=== PATIENT | male | born 1980 | race Caucasian/White ===

== ENCOUNTER 2023-04-26 21:06 | Emergency (ER) | payer SELFPAY ==
[~2023-04-26] VITALS: Ht 193 cm; Wt 120.5 kg
[2023-04-26 21:25] VITALS: TEMP 98
[2023-04-26 21:53] LABS: BASO # 0.1 K/mm3 (0.0-0.2); BASO % 0.6 % (0.0-2.0); EOS # 0.2 K/mm3 (0.0-0.7); EOS % 1.7 % (0.0-4.0); GRAN # 6.4 K/mm3 (1.4-6.5); GRAN % 59.3 % (42.2-75.2); HEMATOCRIT 49.1 % (42.0-52.0); HEMOGLOBIN 17.5 g/dl (13.5-18.0); LYMPH # 3.1 K/mm3 (1.2-3.4); LYMPH % 29.1 % (20.0-51.0); MEAN CELL VOLUME 85 fl (80.0-100.0); MEAN CORPUSCULAR HEMOGLOBIN 30 pg (27-31); MEAN CORPUSCULAR HGB CONC 36 g/dl (33.0-37.0); MEAN PLATELET VOLUME 9.1 fl (7.4-10.4); MONO % 9.2 % (1.7-9.3); PLATELET COUNT 227 K/mm3 (130-400); RED BLOOD COUNT 5.76 M/mm3 (4.20-5.60); REDCELL DISTRIBUTION WIDTH-CV 12.1 % (11.5-14.5)
[2023-04-26 21:59] LABS: PROTHROMBIN TIME 10.6 SECONDS (9.7-12.8)
[2023-04-26 22:13] LABS: ALANINE AMINOTRANSFERASE 18 U/L (0-55); ALBUMIN 4.4 gm/dL (3.5-5.0); ALCOHOL(ethanol),MEDICAL < 10 mg/dL (0-10); ALKALINE PHOSPHATASE 64 U/L (40-150); ANION GAP 10 mmol/L (7-16); AST,SGOT 15 U/L (5-34); BILIRUBIN,TOTAL 0.5 mg/dL (0.2-1.2); BLOOD UREA NITROGEN 12 mg/dL (9-21); CALCIUM 10.3 mg/dL (8.4-10.2); CARBON DIOXIDE 25 mmol/L (22-29); CHLORIDE 105 mmol/L (98-107); CREATINE KINASE 82 U/L (30-200); GLUCOSE 185 mg/dL (70-99); LIPASE 159 U/L (8-78); POTASSIUM 3.6 mmol/L (3.5-4.5); SODIUM 140 mmol/L (136-145); TOTAL PROTEIN 7.8 gm/dL (6.2-8.1)
[2023-04-26 22:22] LABS: TROPONIN-I < 0.010 ng/mL (0.00-0.033)
[2023-04-26] MEDS ORDERED: Iohexol 350 - 100 ML VIAL IV ONE (23:36)
[2023-04-27] MEDS ORDERED: NS 1,000 ML IV ONE (00:30)
[2023-04-27 01:29] VITALS: BP 155/90; PULSE 80
== END 2023-04-27 01:33 | disposition left against medical advice (07) ==
LOC: COL.ER 21:06
PROVIDERS: Emergency Medicine
DX: I10 Essential (primary) hypertension (principal); R20.2 Paresthesia of skin; R41.0 Disorientation, unspecified; E83.52 Hypercalcemia; R73.9 Hyperglycemia, unspecified; F17.210 Nicotine dependence, cigarettes, uncomplicated
CPT/HCPCS: Q9967

== ENCOUNTER 2023-09-22 20:59 | Emergency (ER) | payer SELFPAY ==
[~2023-09-22] VITALS: Ht 188 cm; Wt 111.4 kg
[2023-09-22 21:02] VITALS: TEMP 98.3
[2023-09-22] MEDS ORDERED: Albuterol/Ipratropium 3 MG-0.5 MG/3 ML Neb Soln IH SCH (21:30)
[2023-09-22] MEDS ORDERED: methylPREDNISolone Sod Succ 125 MG/2 ML VIAL IV ONE (21:30)
[2023-09-22 21:51] LABS: BASO # 0.1 K/mm3 (0.0-0.2); BASO % 0.6 % (0.0-2.0); EOS # 0.2 K/mm3 (0.0-0.7); EOS % 1.6 % (0.0-4.0); GRAN # 6.3 K/mm3 (1.4-6.5); GRAN % 64.8 % (42.2-75.2); HEMATOCRIT 48.1 % (42.0-52.0); HEMOGLOBIN 16.7 g/dl (13.5-18.0); LYMPH # 1.9 K/mm3 (1.2-3.4); LYMPH % 19.4 % (20.0-51.0); MEAN CELL VOLUME 86 fl (80.0-100.0); MEAN CORPUSCULAR HEMOGLOBIN 30 pg (27-31); MEAN CORPUSCULAR HGB CONC 35 g/dl (33.0-37.0); MEAN PLATELET VOLUME 9.5 fl (7.4-10.4); MONO # 1.3 K/mm3 (0.1-0.6); MONO % 13.4 % (1.7-9.3); PLATELET COUNT 206 K/mm3 (130-400); RED BLOOD COUNT 5.59 M/mm3 (4.20-5.60); REDCELL DISTRIBUTION WIDTH-CV 12.6 % (11.5-14.5)
[2023-09-22 22:01] LABS: ALANINE AMINOTRANSFERASE 13 U/L (0-55); ALBUMIN 4.1 g/dL (3.5-5.0); ALKALINE PHOSPHATASE 45 U/L (40-150); ANION GAP 10 mmol/L (7-16); AST,SGOT 12 U/L (5-34); BILIRUBIN,TOTAL 0.4 mg/dL (0.2-1.2); BLOOD UREA NITROGEN 9 mg/dL (9-21); CALCIUM 9.6 mg/dL (8.4-10.2); CHLORIDE 108 mEq/L (98-107); CREATININE, serum 0.88 mg/dL (0.72-1.25); GLUCOSE 140 mg/dL (70-99); SODIUM 142 mEq/L (136-145); TOTAL PROTEIN 6.7 g/dl (6.2-8.1)
[2023-09-22 22:10] LABS: TROPONIN-I < 0.010 ng/mL (0.00-0.033)
[2023-09-22 22:15] LABS: PROTHROMBIN TIME 10.9 SECONDS (9.7-12.8)
[2023-09-22 22:18] LABS: PARTIAL THROMBOPLASTIN TIME 28.9 SECONDS (26.0-37.0)
[2023-09-22] MEDS ORDERED: PREDNISONE20 MG PO (22:23)
[2023-09-22] MEDS ORDERED: PROAIR HFA0.09 MG/AC IH (22:23)
[2023-09-22] MEDS ORDERED: DOXYCYCLINE 10100 MG PO (22:23)
[2023-09-22 22:32] VITALS: BP 151/77; PULSE 103
== END 2023-09-22 22:35 | disposition home or self-care (01) ==
LOC: COL.ER 20:59
PROVIDERS: Emergency Medicine
DX: J20.9 Acute bronchitis, unspecified (principal); F17.210 Nicotine dependence, cigarettes, uncomplicated; Z88.1 Allergy status to other antibiotic agents
CPT/HCPCS: J2919